=== PATIENT | female | born 1970 | race Two or more races ===

== ENCOUNTER 2018-04-19 12:09 | Outpatient (CLI) | payer OTHER ==
[~2018-04-19 12:09] MED LIST: FOSAMAX40 MG; TAMOXIFEN CITRA20 MG
== END 2018-04-19 12:18 | disposition home or self-care (01) ==
LOC: SONOGRAMA 12:09
DX: R59.9 Enlarged lymph nodes, unspecified (principal)

== ENCOUNTER 2021-07-07 09:24 | Outpatient (CLI) | payer OTHER | END 2021-07-07 09:41 | disposition home or self-care (01) | LOC: RAD 09:24 | PROVIDERS: ATTEND Orthopaedic Surgery | DX: M25.572 Pain in left ankle and joints of left foot (principal); M25.551 Pain in right hip ==

== ENCOUNTER 2022-11-24 09:18 | Outpatient (CLI) | payer OTHER ==
[~2022-11-24 09:18] MED LIST changes: +GABAPENTIN300 M2 PO; +VOLTAREN ARTHRI20 GM TOP
== END 2022-11-24 09:26 | disposition home or self-care (01) ==
LOC: LAB 09:18
PROVIDERS: ATTEND Orthopaedic Surgery
DX: E55.9 Vitamin D deficiency, unspecified (principal); M85.9 Disorder of bone density and structure, unspecified; E56.1 Deficiency of vitamin K; E21.3 Hyperparathyroidism, unspecified; M81.8 Other osteoporosis without current pathological fracture; E88.9 Metabolic disorder, unspecified